=== PATIENT | male | born 1955 | race Two or more races ===

== ENCOUNTER → 2019-07-16 | Outpatient (CLI) | payer BC ==
--- NOTE | 2019-07-20 09:34 | SLEEPCENT ---
DATE OF PROCEDURE: 07/16/2019 ORDERED BY: Sara Melendez NP Nocturnal polysomnography was performed for the titration of pressure therapy in this patient with a clinical diagnosis of obstructive sleep apnea syndrome supported by home testing revealing respiratory event index of 44.7. For testing, a [employer] Eson nasal mask of medium size was used, 4 cm of water pressure applied to the circuit, and the lights were extinguished. 7 hours and 39 minutes of data were reviewed. There 390.5 minutes of sleep identified. Sleep latency was normal at 13.5 minutes. Rapid eye movement (REM) latency was normal at 55-minutes. Sleep architecture was good with five REM cycles. Overall sleep efficiency 85.9%. The patient's electrocardiogram showed sinus rhythm with an average heart rate of 58 beats per minute. Electroencephalogram (EEG) showed normal waveforms for awake and sleep. Respiratory events were fully palliated with a C-PAP to a pressure +6. Significant limb activity persisted despite optimal C-PAP pressure. Limb movement arousal index was only 3.7. IMPRESSION: Obstructive sleep apnea syndrome (G47.33). RECOMMENDATIONS: Nightly use of pressure therapy 6 cm of water.
== END ==
LOC: M SLEEP 19:39
PROVIDERS: ATTEND Nurse Practitioner Family
DX: G47.33 Obstructive sleep apnea (adult) (pediatric) (principal)

== ENCOUNTER 2020-01-23 12:18 | Day surgery (SDC) | payer BC ==
[~2020-01-23] VITALS: Ht 190.5 cm; Wt 112.2 kg
[2020-01-23] MEDS ORDERED: DOXY20TA4 PO (12:34)
[2020-01-23] MEDS ORDERED: OLME1TAB45 PO (12:34)
[2020-01-23] MEDS ORDERED: AMLO10TA5 PO (12:34)
[2020-01-23] MEDS ORDERED: FISH1000 PO (12:34)
[2020-01-23] MEDS ORDERED: COQ-30CA2 PO (12:34)
[2020-01-23] MEDS ORDERED: VITA500045 PO (12:34)
[2020-01-23] MEDS ORDERED: VITA100T59 PO (12:34)
[2020-01-23] MEDS ORDERED: ECOT81TA5 PO (12:34)
[2020-01-23 13:56] LABS: BASO # 0.1 10^3/uL (0.0-0.2); BASO % 0.5 % (0.0-1.0); EOS # 0.1 10^3/uL (0.0-0.5); HEMATOCRIT 49.9 % (42.0-52.0); HEMOGLOBIN 17.6 g/dl (13.5-17.5); LYMPH # 1.4 10^3/uL (1.5-5.0); LYMPH % 13.3 % (24.0-44.0); MEAN CORPUSCULAR HEMOGLOBIN 30.5 pg (27.0-33.0); MEAN CORPUSCULAR HGB CONC 35.3 g/dl (32.0-36.5); MEAN CORPUSCULAR VOLUME 86.5 fl (80.0-96.0); MONO % 9.6 % (0.0-5.0); NEUTROPHILS # 7.9 10^3/uL (1.5-8.5); NEUTROPHILS % 75.2 % (36.0-66.0); PLATELET COUNT, AUTOMATED 249 10^3/uL (150-450); RED BLOOD COUNT 5.77 10^6/uL (4.30-6.10); WHITE BLOOD COUNT 10.4 10^3/uL (4.0-10.0)
--- NOTE | 2020-01-23 14:16 | REP ---
CHEST, TWO VIEWS: Two views of the chest are performed. There are no prior studies from comparison. There is linear fibroatelectatic change in each lung base. No infiltrate is seen. The heart is upper limits of normal in size. Mediastinal silhouette is unremarkable. There are mild degenerative changes of the spine. IMPRESSION: Mild fibroatelectatic changes in the lung bases. No acute infiltrate. Electronically Signed by Melquiades Moyer MD 01/23/2020 02:45 P
[2020-01-23] MEDS ORDERED: ACETAMINOPHEN TAB 650MG DOSE (2X325MG) PO ONE (14:45)
[2020-01-23 15:07] LABS: ALBUMIN 3.7 GM/DL (3.2-5.2); ALT/SGPT 42 U/L (12-78); BILIRUBIN,DIRECT 0.2 MG/DL (0.0-0.2); BLOOD UREA NITROGEN 14 MG/DL (7-18); CALCIUM LEVEL 9.9 MG/DL (8.8-10.2); CARBON DIOXIDE LEVEL 30 MEQ/L (21-32); CHLORIDE LEVEL 105 MEQ/L (98-107); CPK CREATINE PHOSPHOKINASE 90 U/L (39-308); CREATININE FOR GFR 1.03 MG/DL (0.70-1.30); GLOMERULAR FILTRATION RATE > 60.0 (>49); GLUCOSE, FASTING 89 MG/DL (70-100); LIPASE 38 U/L (73-393); MB/CK RELATIVE INDEX 2.22 (< OR =4); POTASSIUM SERUM 3.9 MEQ/L (3.5-5.1); SODIUM LEVEL 139 MEQ/L (136-145); TOTAL PROTEIN 7.4 GM/DL (6.4-8.2); TROPONIN I < 0.02 NG/ML (< 0.10)
[2020-01-23] MEDS ORDERED: ISOVUE-370 76% 100ML VIAL As Ordered ONE (15:09)
--- NOTE | 2020-01-23 15:54 | REP ---
CT ABDOMEN AND PELVIS WITH IV CONTRAST: Visualized lung bases demonstrate fibroatelectatic change. There is a small hiatal hernia. There are scattered small cysts in the liver. Gallbladder is grossly unremarkable. Spleen is normal in size with no intrinsic abnormality. There is small right adrenal adenoma measuring 1.5 cm in diameter with mild diffuse adrenal gland thickening. Pancreas and kidneys are unremarkable. There is no hydronephrosis. There is no abdominal aortic aneurysm. There is no adenopathy. There is no free air. The appendix appears inflamed, with extensive periappendiceal inflammation. Rounded area of fluid along the appendix may represent a small periappendiceal abscess 2 cm in diameter. There is a diverticulum of the cecum. There is no other area of bowel wall thickening or inflammation. No pelvic mass is seen. Urinary bladder is unremarkable. Prostate is enlarged. There are degenerative changes of the spine. IMPRESSION: Findings compatible with appendicitis. There may be a 2 cm periappendiceal abscess. Electronically Signed by Melquiades Moyer MD 01/23/2020 04:28 P
[2020-01-23] MEDS ORDERED: PIPERACILLIN/TAZOBACTAM SOD 3.375 GM in D5W MINI-BAG PLUS 50 ML IV ONE (16:00)
[2020-01-23] MEDS ORDERED: METHYL PROTECT PO (16:32)
[2020-01-23] MEDS ORDERED: ASCO500T PO (16:32)
[2020-01-23] MEDS ORDERED: VITAD1000T PO (16:32)
[2020-01-23] MEDS ORDERED: BUPIVACAINE/EPIN 0.25% 30 ML VIAL As Ordered ONE (19:37)
[2020-01-23] MEDS ORDERED: dexameTHASONE 4 MG/ML 1ML VIAL (J1100 PER 1MG) As Ordered ONE (20:16)
[2020-01-23] MEDS ORDERED: propofoL 200 MG/20 ML VIAL As Ordered ONE (20:16)
[2020-01-23] MEDS ORDERED: MIDAZOLAM INJ 2MG/2ML VIAL (J2250 PER 1MG) As Ordered ONE (20:16)
[2020-01-23] MEDS ORDERED: fentaNYL 100 MCG/2 ML INJECTION (J3010) As Ordered ONE ×2 (20:16→20:35)
[2020-01-23] MEDS ORDERED: ONDANSETRON 4MG/2ML VIAL As Ordered ONE (20:16)
[2020-01-23] MEDS ORDERED: KETOROLAC 60 MG/2 ML VIAL As Ordered ONE (20:16)
[2020-01-23] MEDS ORDERED: ROCURONIUM BROMIDE 50 MG/5 ML VIAL As Ordered ONE (20:16)
[2020-01-23] MEDS ORDERED: LIDOCAINE 2% 100MG/5ML SDV (FOR ANES.) As Ordered ONE (20:16)
[2020-01-23] MEDS ORDERED: PHENYLephrine HCL 500 MCG/5 ML (100MCG/ML) SYRINGE (J2370) As Ordered ONE (20:21)
[2020-01-23] MEDS ORDERED: SUGAMMADEX SODIUM 500 MG/5 ML VIAL (BRIDION) As Ordered ONE (20:34)
[2020-01-23] MEDS ORDERED: ONDANSETRON 4MG/2ML VIAL IV PRN ×2 (21:00→21:15)
[2020-01-23] MEDS ORDERED: NORCO, ANEXSIA 5/325MG TABLET (HYDROcodone/ACETAMINOPHEN) PO PRN (21:00)
[2020-01-23] MEDS ORDERED: IPRATROPIUM 0.5MG/ALBUTEROL 2.5MG INH SOL UD 3ML (DUONEB)(J7620) NEB PRN (21:00)
[2020-01-23] MEDS ORDERED: KETOROLAC 30 MG/ML 1ML VIAL IV PRN (21:00)
[2020-01-23] MEDS ORDERED: MORPHINE 4 MG/ML 1ML VIAL/SYRINGE (J2270) IV PRN (21:00)
[2020-01-23] MEDS ORDERED: MORPHINE 2 MG/ML 1ML VIAL (J2270) IV PRN (21:00)
[2020-01-23] MEDS ORDERED: LR 1,000 ML IV SCH (21:15)
[2020-01-23] MEDS: fentaNYL 100 MCG/2 ML INJECTION (J3010) IV PRN ×4 (21:20→21:35)
[2020-01-23] MEDS: oxyCODONE 5MG TAB PO PRN ×2 (21:20→21:51)
[2020-01-23 22:31] VITALS: BP 119/82
[2020-01-23 23:00] VITALS: BP 118/78; O2SAT 91
[2020-01-23] MEDS: PIPERACILLIN/TAZOBACTAM SOD 3.375 GM in D5W MINI-BAG PLUS 50 ML IV SCH (23:01)
[2020-01-23] MEDS: D5W/LR 1,000 ML IV SCH (23:01)
[2020-01-24] VITALS: BP 118/80
[2020-01-24 01:00] VITALS: BP 120/74
[2020-01-24] MEDS: IPRATROPIUM 0.5MG/ALBUTEROL 2.5MG INH SOL UD 3ML (DUONEB)(J7620) NEB SCH ×2 (01:24→07:19)
[2020-01-24 02:00] VITALS: BP 119/72
[2020-01-24] MEDS: D5W/LR 1,000 ML IV SCH (04:19)
[2020-01-24] MEDS: PIPERACILLIN/TAZOBACTAM SOD 3.375 GM in D5W MINI-BAG PLUS 50 ML IV SCH ×2 (04:19→10:23)
[2020-01-24 05:04] VITALS: BP 110/77
[2020-01-24] MEDS ORDERED: amLODIPine 10 MG TAB PO SCH (09:00)
[2020-01-24] MEDS ORDERED: VITAMIN D 1,000 INTERNATIONAL UNITS TABLET PO SCH (09:00)
[2020-01-24] MEDS ORDERED: PANTOPRAZOLE 40MG VIAL (C9113 PER 1) IV SCH (09:00)
[2020-01-24] MEDS ORDERED: ASCORBIC ACID 500 MG TAB PO SCH (09:00)
[2020-01-24] MEDS ORDERED: ASPIRIN 81 MG ENTERIC TAB PO SCH (09:00)
[2020-01-24 10:00] VITALS: BP 116/78
[2020-01-24 10:23] VITALS: BP 110/77
[2020-01-24] MEDS ORDERED: AUGM500T34 PO (11:42)
[2020-01-24] MEDS ORDERED: HYDR-3715 PO (11:42)
--- NOTE | 2020-01-24 13:57 | ECGEPIP ---
[facility] - ED Test Date: 2020-01-23 Pat Name: RANDA SALDANA Department: Room: - Gender: Male Environmental Aid: : 1955 Requested By: BIBI Guerra PA-C Order Number: [id number] Reading MD: Lona Patrick Measurements Intervals [place] Rate: 81 P: 54 TX: 185 QRS: -21 QRSD: 96 T: 30 QT: 366 QTc: 426 Interpretive Statements SINUS RHYTHM BORDERLINE LEFT AXIS DEVIATION NO PRIOR Electronically Signed on 01-24-2020 13:57:28 EDT by Lona Patrick
--- NOTE | 2020-02-11 10:20 | RO ---
DATE OF PROCEDURE: 01/23/2020 PREOPERATIVE DIAGNOSIS: Acute appendicitis. POSTOPERATIVE DIAGNOSIS: Acute appendicitis. PROCEDURE: Laparoscopic appendectomy. SURGEON: Dr. Ildefonso Cohen. ANESTHESIA: General endotracheal anesthesia. ESTIMATED BLOOD LOSS: Minimal. FLUIDS: Crystalloid. DESCRIPTION OF PROCEDURE: The patient was taken to the operating room and was given general anesthesia. After adequate anesthesia and preoperative antibiotics were given, the patient was prepped and draped in the usual sterile fashion. Next a supraumbilical incision was made with skin knife. Blunt dissection was carried down to fascia. Veress needle placed into the abdominal cavity, insufflated to 15 mm of pressure and a dilating 12 mm trocar was placed at the umbilicus under direct visualization. A left lower quadrant and suprapubic 5 mm trocars were placed. The patient was placed in steep Trendelenburg left side down position and the right lower quadrant was evaluated. Indeed revealed an inflamed appendix with a small abscess surrounding the base of the tip of the appendix itself. This was entered, irrigated out and suctioned out. Then the appendix was mobilized nicely and the base of the cecum was also mobilized at the same time to allow for the mesentery of the appendix to be transected with harmonic scalpel. Once this was transected down to the level of the cecal wall, the base of the appendix was transected using a SHAD stapler, placed in an EndoCatch bag and brought out through the umbilicus. The right lower quadrant was copiously irrigated till clear. All trocars were removed under direct visualization. 0 Vicryl was used close the fascia at the umbilicus and all incisions were closed #4-0 Vicryl. Steri-Strips and a dry sterile dressing was applied. The patient was awakened, extubated, brought to recovery room awake, alert, hemodynamically stable.
== END 2020-01-24 13:59 | disposition home or self-care (01) ==
LOC: M ED 12:18 → M SDC 12:19 → M ED 19:52 → M MS5PR 22:30 → M SDC 01-24 13:59
PROVIDERS: ATTEND Surgery
DX: K35.33 Acute appendicitis with perforation, localized peritonitis, and gangrene, with abscess (principal); I10 Essential (primary) hypertension; K21.9 Gastro-esophageal reflux disease without esophagitis; Z79.899 Other long term (current) drug therapy; Z79.82 Long term (current) use of aspirin; Z79.2 Long term (current) use of antibiotics
CPT/HCPCS: 36415; 44970; 71046; 74177; 80048; 80076; 81001; 82550; 82553; 83605; 83690; 84484; 85025; 87040; 88304; 93005; 94640; 96365; 96366; 96375; 96376; 99284; C9113; J1100; J1885; J2250; J2370; J2405; J2543; J3010; Q9967

== ENCOUNTER 2023-04-19 14:35 | Emergency (ER) | payer BC ==
[~2023-04-19] VITALS: Ht 190.5 cm; Wt 106.4 kg
[~2023-04-19 14:35] MED LIST: AMLO1TAB25 PO; ASCO500T PO; AUGM500T34 PO; COQ-30CA2 PO; DOXY20TA4 PO; ECOT81TA5 PO; FISH1000 PO; HYDR-3715 PO; METHYL PROTECT PO; OLME1TAB51 PO; VITA100093 PO; VITA100T59 PO; VITA500045 PO
[2023-04-19 14:36] VITALS: BP 165/80; TEMP 98.3; O2SAT 99
[2023-04-19 18:30] LABS: GC DNA AMPLIFICATION NEGATIVE (NEGATIVE)
== END 2023-04-19 17:47 | disposition left against medical advice (07) ==
LOC: M ED 14:35
DX: Z53.21 Procedure and treatment not carried out due to patient leaving prior to being seen by health care provider (principal)

== ENCOUNTER 2024-06-03 17:00 | Emergency (ER) | payer BC, OTHER ==
[~2024-06-03] VITALS: Ht 190.5 cm; Wt 118.6 kg
[~2024-06-03 17:00] MED LIST changes: -DOXY20TA4 PO; +DOXY20TA6 PO; -OLME1TAB51 PO; +OLME1TAB92 PO
[2024-06-03 17:01] VITALS: BP 160/90; TEMP 98; O2SAT 96
[2024-06-03] MEDS ORDERED: AMOX875T2 PO (18:05)
== END 2024-06-03 18:13 | disposition home or self-care (01) ==
LOC: M ED 17:00
DX: S81.851A Open bite, right lower leg, initial encounter (principal); W54.0XXA Bitten by dog, initial encounter; Y92.89 Other specified places as the place of occurrence of the external cause; Y93.9 Activity, unspecified; Y99.9 Unspecified external cause status; I10 Essential (primary) hypertension; Z79.82 Long term (current) use of aspirin; Z79.899 Other long term (current) drug therapy; Z88.8 Allergy status to other drugs, medicaments and biological substances

== ENCOUNTER → 2024-10-16 | Outpatient (CLI) | payer BC ==
[~2024-10-16] MED LIST changes: +AMOX875T2 PO
[2024-10-16 18:08] LABS: BASO # 0.1 10^3/uL (0.0-0.2); BASO % 0.9 % (0.0-1.0); EOS # 0.1 10^3/uL (0.0-0.5); EOS % 2.6 % (0.0-3.0); HEMATOCRIT 51.8 % (42.0-52.0); HEMOGLOBIN 17.3 g/dl (13.5-17.5); LYMPH # 1.5 10^3/uL (1.5-5.0); LYMPH % 28.7 % (24.0-44.0); MEAN CORPUSCULAR HEMOGLOBIN 29.6 pg (27.0-33.0); MEAN CORPUSCULAR HGB CONC 33.4 g/dl (32.0-36.5); MEAN CORPUSCULAR VOLUME 88.7 fl (80.0-96.0); MONO # 0.4 10^3/uL (0.0-0.8); MONO % 7.8 % (2.0-8.0); NEUTROPHILS # 3.2 10^3/uL (1.5-8.5); NEUTROPHILS % 59.8 % (36.0-66.0); PLATELET COUNT, AUTOMATED 299 10^3/uL (150-450); RED BLOOD COUNT 5.84 10^6/uL (4.30-6.10); WHITE BLOOD COUNT 5.4 10^3/uL (4.0-10.0)
[2024-10-16 18:33] LABS: PROSTATIC SPECIFIC AG MONITOR 2.77 NG/ML (< 4.00)
[2024-10-16 18:36] LABS: ALBUMIN 4.5 G/DL (3.2-5.2); ALKALINE PHOSPHATASE 66 U/L (40-129); ALT/SGPT 75 U/L (7.0-40); AST/SGOT 34 U/L (<34); BLOOD UREA NITROGEN 16 MG/DL (9-23); CALCIUM LEVEL 9.9 MG/DL (8.3-10.6); CARBON DIOXIDE LEVEL 29 MMOL/L (20-31); CHLORIDE LEVEL 105 MMOL/L (98-107); CHOLESTEROL LEVEL 200 MG/DL (<200); CHOLESTEROL RISK RATIO 4.43 (<5); CREATININE FOR GFR 0.88 MG/DL (0.70-1.30); GLOMERULAR FILTRATION RATE > 60.0 (>49); GLUCOSE, FASTING 89 MG/DL (74-106); HDL CHOLESTEROL 45.1 MG/DL (>40); LDL CHOLESTEROL 135.1 MG/DL (<100); NON-HDL-C 154.9 MG/DL; POTASSIUM SERUM 4.3 MMOL/L (3.5-5.1); SODIUM LEVEL 143 MMOL/L (136-145); TOTAL PROTEIN 7.4 G/DL (5.7-8.2); TRIGLYCERIDES LEVEL 99 MG/DL (<150)
== END ==
LOC: M WUC 11:22
PROVIDERS: ATTEND Family Medicine
DX: N40.0 Benign prostatic hyperplasia without lower urinary tract symptoms (principal); I10 Essential (primary) hypertension

== ENCOUNTER → 2025-04-15 | Outpatient (CLI) | payer BC ==
[2025-04-15 19:19] LABS: ALT/SGPT 68.0 U/L (7.0-40); AST/SGOT 38.0 U/L (<34); CALCIUM LEVEL 9.5 MG/DL (8.3-10.6); CARBON DIOXIDE LEVEL 25.0 MMOL/L (20-31); CHLORIDE LEVEL 108.0 MMOL/L (98-107); CREATININE FOR GFR 0.94 MG/DL (0.70-1.30); GLOMERULAR FILTRATION RATE 88.9 (>49); POTASSIUM SERUM 4.2 MMOL/L (3.5-5.1); SODIUM LEVEL 146.0 MMOL/L (136-145)
[2025-04-15 19:44] LABS: ESTIMATED AVERAGE GLUCOSE 97.0 MG/DL (60-110)
== END ==
LOC: M WUC 12:43
PROVIDERS: ATTEND Family Medicine
DX: R73.01 Impaired fasting glucose (principal); I10 Essential (primary) hypertension; R74.01 Elevation of levels of liver transaminase levels; L30.9 Dermatitis, unspecified

== ENCOUNTER → 2025-04-30 | Outpatient (CLI) | payer BC | LOC: M RAD 08:23 | PROVIDERS: ATTEND Family Medicine | DX: R74.01 Elevation of levels of liver transaminase levels (principal); K76.89 Other specified diseases of liver ==

== ENCOUNTER → 2025-05-12 | Outpatient (CLI) | payer BC ==
[2025-05-12 13:30] LABS: IRON (FE) 124 UG/DL (65-175)
[2025-05-12 13:31] LABS: HEPATITIS B SURFACE ANTIBODY NEGATIVE (POSITIVE)
[2025-05-12 13:32] LABS: ALT/SGPT 69 U/L (7.0-40); AST/SGOT 40 U/L (<34); PERCENT SATURATION 37.9 % (19.7-50.0)
[2025-05-12 14:03] LABS: HEPATITIS C VIRUS ABY INDEX < 0.02 INDEX (<0.8)
== END ==
LOC: M WUC 08:44
PROVIDERS: ATTEND Family Medicine
DX: R74.01 Elevation of levels of liver transaminase levels (principal)

== ENCOUNTER → 2025-09-03 | Outpatient (CLI) | payer BC ==
[~2025-09-03] MED LIST changes: +ERGO125013 PO; -VITA500045 PO
[2025-09-05 15:13] LABS: ANTI-MITOCHONDRIAL ANTIBODY NEGATIVE (NEGATIVE)
[2025-09-07 01:44] LABS: ANTI-SMOOTH MUSCLE ANTIBODY < 20 U (<20)
== END ==
LOC: M WUC 11:22
PROVIDERS: ATTEND Student in an Organized Health Care Education/Training Program
DX: K76.89 Other specified diseases of liver (principal); R94.5 Abnormal results of liver function studies